=== PATIENT | female | born 1950 | race Caucasian/White ===

== ENCOUNTER → 2017-07-11 | Outpatient (CLI) | payer MEDICARE ==
[~2017-07-11] MED LIST: SODIUM CHLORIDE 0.9% 500 ML in EMPTY BAG 1 BAG IV PRN
[2017-07-11 14:25] VITALS: BP 128/73; PULSE 56; RESP 16; TEMP 98.2
== END | disposition home or self-care (01) ==
LOC: PROCWHC3 13:42
PROVIDERS: ATTEND Psychiatry & Neurology Neurology
DX: G35 Multiple sclerosis (principal)
CPT/HCPCS: 96365

== ENCOUNTER → 2017-09-16 | Outpatient (CLI) | payer MEDICARE ==
--- NOTE | 2017-09-16 16:48 | MR ---
EXAMINATION TYPE: MR brain/cspine wo/w DATE OF EXAM: 09/16/2017 COMPARISON: Prior MR brain 01/08/2013 and prior thoracic spine MRI 07/08/2013 HISTORY: MS follow up TECHNIQUE: Multiplanar, multisequence images of the brain and brainstem is performed without and with IV contras t, utilizing 8 mL intravenous Gadavist . FINDINGS: Diffusion weighted images demonstrate no evidence of a recent infarct or other diffusion ab normality. There is no extra-axial fluid collection. The demyelination is seen shows a similar appea dana, confluent periventricular demyelination somewhat more conspicuous at the left frontal region a s well as at the level of the posterior horn of the right lateral ventricle juxtacortical focus in th e right frontal lobe on axial image 23 measures approximately 3 to 4 mm and is thought to be new. The ventricular system and cisternal spaces are normal in size and appearance. The brain volume is age appropriate. Midline structures demonstrate normal morphology. The craniocervical junction appears within normal limits. Post contrast images demonstrate no abnormal enhancement. The dural venous sinuses appear pa tent. The visualized sinuses are clear and the globes are intact. IMPRESSION: Slight interval progression in the demyelination as described. Cervical spine MRI: The abnormal cord signal at the T2 level is seen on sagittal images but not cover ed on the axial image. Suspect there is increased signal also present at approximately the T3-4 level within the thoracic cord similar to prior exam. Cervical cord signal is maintained. No abnormal enha ncement following contrast administration. Cervical vertebral bodies show preserved height. Minimal retrolisthesis grade 1 C5-6, there is associ ated loss of disc height, endplate discogenic marrow signal change, spondylosis. Left posterior parac entral disc herniation, extension endplate disc complex causes anterolateral mass effect on the theca l sac and encroaches towards the left neural foramen. C4-5 show posterior extension of endplate disc complex causing mild anterior mass effect on the theca l sac. C6-7 shows lateral extension of endplate disc complex causing left-sided foraminal encroachmen t. Small posterior central disc extrusion at C3-4. No other significant foraminal encroachment or canal stenosis. IMPRESSION: There may be a new focus of cord signal abnormality at T2. Degenerative disc disease note d within the cervical spine, foraminal encroachment as described.
== END | disposition home or self-care (01) ==
LOC: RADMRIMAIN 14:43
PROVIDERS: ATTEND Psychiatry & Neurology Neurology
DX: G37.9 Demyelinating disease of central nervous system, unspecified (principal); M50.30 Other cervical disc degeneration, unspecified cervical region
CPT/HCPCS: 70553; 72156; A9581

== ENCOUNTER → 2017-09-18 | Outpatient (CLI) | payer MEDICARE ==
--- NOTE | 2017-09-18 18:26 | MR ---
EXAMINATION TYPE: MR thoracic spine wo/w con DATE OF EXAM: 09/18/2017 COMPARISON: NONE HISTORY: Back pain, weakness, MS CONTRAST: Standard multiplanar, multisequence MRI departmental protocol with and without the intravenous admini stration of 7.5 mL intravenous Gadavist gadolinium contrast. FINDINGS: Paraspinal soft tissues are normal. Vertebral body height and alignment are maintained. Cord signal is maintained. No definite plaques are visualized. There is a tiny central disc protrusion at T4-5 deforming the thecal sac without cord contact. There is a diffuse disc displacement at T5-6 and there is a left paracentral protrusion at T5-6 defor gabriela the thecal sac without cord contact. There is a left paracentral disc protrusion at T8-9 deforming the thecal sac without cord contact. No other definite discal abnormalities are seen. Intervertebral foramina are widely maintained. IMPRESSION: 1. NO EVIDENCE OF MS PLAQUES ON THIS EXAMINATION. 2. MULTIPLE SMALL DISC PROTRUSIONS DESCRIBED. NONE OF THEM CAUSING CORD CONTACT.
== END | disposition home or self-care (01) ==
LOC: RADMRIMAIN 16:34
PROVIDERS: ATTEND Psychiatry & Neurology Neurology
DX: M51.24 Other intervertebral disc displacement, thoracic region (principal); G35 Multiple sclerosis
CPT/HCPCS: 72157; A9581

== ENCOUNTER → 2017-12-26 | Outpatient (CLI) | payer MEDICARE ==
--- NOTE | 2017-12-29 13:23 | MM ---
Reason for exam: screening (asymptomatic). Last mammogram was performed 3 years and 8 months ago. History: Patient is postmenopausal and has history of other cancer at age 56. Physical Findings: A clinical breast exam by your physician is recommended on an annual basis and results should be correlated with mammographic findings. MG Screening Mammo w CAD Bilateral CC and MLO view(s) were taken. Prior study comparison: August 13, 2016, mammogram. July 13, 2015, mammogram. April 29, 2014, bilateral MG screening mammo w CAD. April 27, 2013, bilateral digital screening mammo w/CAD. There are scattered fibroglandular densities. Finding: There is a new high density, obscured round mass in the inner quadrant, middle position of the right breast on CC view. New finding since April 27, 2013, August 13, 2016, July 13, 2015, and April 29, 2014. ASSESSMENT: Incomplete: need additional imaging evaluation, BI-RAD 0 RECOMMENDATION: Special view mammogram of the right breast. If lesion persists on supplemental views, image directed ultrasound is recommended. [facility] will attempt to contact patient to return for supplemental views and ultrasound if indicated.
== END | disposition home or self-care (01) ==
LOC: RADMAMWWP 13:13
PROVIDERS: ATTEND Family Medicine
DX: Z12.31 Encounter for screening mammogram for malignant neoplasm of breast (principal)
CPT/HCPCS: 77067

== ENCOUNTER → 2018-01-02 | Outpatient (CLI) | payer MEDICARE ==
--- NOTE | 2018-01-02 13:40 | MM ---
Reason for exam: additional evaluation requested from abnormal screening. Last mammogram was performed less than 1 month ago. History: Patient is postmenopausal and has history of other cancer at age 56. Physical Findings: Nurse did not find any significant physical abnormalities on exam. MG Work Up Mamm w CAD RT Spot compression CC and LM view(s) were taken of the right breast. Prior study comparison: December 26, 2017, bilateral MG screening mammo w CAD. August 13, 2016, mammogram. The breast tissue is heterogeneously dense. This may lower the sensitivity of mammography. There is no discrete abnormality on compression. These results were verbally communicated with the patient and result sheet given to the patient on 01/02/18. ASSESSMENT: Probably benign, BI-RAD 3 RECOMMENDATION: Follow-up diagnostic mammogram of the right breast in 6 months.
== END | disposition home or self-care (01) ==
LOC: RADMAMWWP 12:57
PROVIDERS: ATTEND Family Medicine
DX: R92.8 Other abnormal and inconclusive findings on diagnostic imaging of breast (principal)
CPT/HCPCS: 77065

== ENCOUNTER 2018-01-29 15:46 | Emergency (ER) | payer MEDICARE ==
[2018-01-29] MEDS ORDERED: DEXAMETHASONE SOD PHOSPHATE 10 MG/ML 1 ML VIAL IM STA (16:56)
[2018-01-29] MEDS ORDERED: MORPHINE SULFATE/PF 10MG/10ML VL IM STA (16:56)
[2018-01-29] MEDS ORDERED: HYDROcodone/APAP 10-325MG 1 EACH TAB PO ONE (16:59)
--- NOTE | 2018-01-29 18:34 | ED ---
General Adult HPI - General Chief complaint: Extremity Problem,Nontraumatic Stated complaint: lt leg pain Time Seen by Provider: 01/29/18 16:24 Source: patient, RN notes reviewed, old records reviewed Mode of arrival: ambulatory Limitations: no limitations - History of Present Illness Initial comments: This is a 67-year-old female to the ER for evaluation. She presents today for evaluation regards to back pain, back pain down left leg. Patient has history of MS. No history of injury. No loss of bowel or bladder. No neurological complaints no weakness and decreased sensation just pain. Patient is taking pain controllable out. Patient does have follow-up with neurology next week. Travel history no significant history for DVT - Related Data Home Medications Medication Instructions Recorded Confirmed Glatiramer Acetate [Copaxone] 40 mg SQ MOWEFR 05/24/14 01/29/18 Cholecalciferol [Vitamin D3] 50,000 unit PO WE 04/28/15 01/29/18 Vitamin B Complex 1 tab PO QAM 04/29/15 01/29/18 Multivitamin/Iron/Folic Acid 1 tab PO DAILY 05/04/15 01/29/18 [Centrum Complete Multivit Tab] Calcium Carbonate [Calcium] 900 mg PO DAILY 06/06/15 01/29/18 Flaxseed [Flaxseed Oil] 1,000 mg PO DAILY 06/06/15 01/29/18 Garlic 1 tab PO DAILY 06/06/15 01/29/18 Glucosam/Juan-Msm1/C/Ronnie/Bosw 1 tab PO DAILY 06/06/15 01/29/18 [Glucosamine-Chondroitin Tablet] Pantoprazole Sodium [Protonix] 40 mg PO BID 06/06/15 01/29/18 Baclofen 20 mg PO HS 07/05/16 01/29/18 HYDROcodone/APAP 5-325MG [Capulin 1 tab PO TID 01/29/18 01/29/18 5-325] Levothyroxine Sodium [Synthroid] 62.5 mcg PO LYON 01/29/18 01/29/18 Levothyroxine Sodium [Synthroid] 125 mcg PO MOTUWETHFRSA 01/29/18 01/29/18 Nadolol [Corgard] 20 mg PO BID 01/29/18 01/29/18 Previous Rx's Medication Instructions Recorded Ascorbic Acid [Vitamin C] 500 mg PO DAILY tab 07/10/15 Aspirin EC [Ecotrin Low Dose] 81 mg PO HS tablet. 05/12/15 Atorvastatin [Lipitor] 20 mg PO HS tab 05/12/15 Isosorbide Mononitrate ER [Imdur] 30 mg PO DAILY tab.er.24h 05/12/15 OXcarbazepine [Trileptal] 150 mg PO BID tab 05/12/15 Sucralfate [Carafate] 1 gm PO QID tab 05/12/15 Allergies Allergy/AdvReac Type Severity Reaction Status Date / Time aspirin AdvReac Nausea Verified 01/29/18 16:20 cefuroxime axetil AdvReac Diarrhea Verified 01/29/18 16:20 [From Ceftin] ciprofloxacin [From Cipro] AdvReac Dizziness Verified 01/29/18 16:20 ciprofloxacin HCl AdvReac Dizziness Verified 01/29/18 16:20 [From Cipro] simvastatin AdvReac Myalgias, Verified 01/29/18 16:20 Fatigue tramadol HCl [From Ultram] AdvReac Nausea & Verified 01/29/18 16:20 Vomiting & Diarrhea Review of Systems ROS Statement: Those systems with pertinent positive or pertinent negative responses have been documented in the HPI. ROS Other: All systems not noted in ROS Statement are negative. Past Medical History Past Medical History: Chest Pain / Angina, GERD/Reflux, Hyperlipidemia, Hypertension, Osteoarthritis (OA), Thyroid Disorder Additional Past Medical History / Comment(s): MIGRAINE HEADACHE, THYROID CANCER , Multiple Sclerosis History of Any Multi-Drug Resistant Organisms: C-DIFF Date of last positivie culture/infection: 05-01-15 MDRO Source:: Stool Past Surgical History: Heart Catheterization, Tonsillectomy, Tubal Ligation Additional Past Surgical History / Comment(s): thyroidectomy, EGD's , colonoscopY R knee arthroscopy, Past Anesthesia/Blood Transfusion Reactions: No Reported Reaction Past Psychological History: No Psychological Hx Reported Smoking Status: Never smoker Past Alcohol Use History: None Reported Past Drug Use History: None Reported - Past Family History Brother(s) Family Medical History: Cancer Additional Family Medical History / Comment(s): KIDNEY CANCER Father History Unknown: Yes Additional Family Medical History / Comment(s): Father when pt was 17 yrs old. Denies a family history of others with MS. Mother Family Medical History: No Reported History Additional Family Medical History / Comment(s): Mother was healthy and at age 89yrs. General Exam Limitations: no limitations General appearance: alert, in no apparent distress Head exam: Present: atraumatic, normocephalic, normal inspection Eye exam: Present: normal appearance, PERRL, EOMI. Absent: scleral icterus, conjunctival injection, periorbital swelling ENT exam: Present: normal exam, mucous membranes moist Neck exam: Present: normal inspection. Absent: tenderness, meningismus, lymphadenopathy Respiratory exam: Present: normal lung sounds bilaterally. Absent: respiratory distress, wheezes, rales, rhonchi, stridor Cardiovascular Exam: Present: regular rate, normal rhythm, normal heart sounds. Absent: systolic murmur, diastolic murmur, rubs, gallop, clicks GI/Abdominal exam: Present: soft, normal bowel sounds. Absent: distended, tenderness, guarding, rebound, rigid Extremities exam: Present: normal inspection, full ROM, normal capillary refill. Absent: tenderness, pedal edema, joint swelling, calf tenderness Back exam: Present: normal inspection Neurological exam: Present: alert, oriented X3, CN II-XII intact Psychiatric exam: Present: normal affect, normal mood Skin exam: Present: warm, dry, intact, normal color. Absent: rash Course Vital Signs 01/29/18 01/29/18 15:48 17:31 Temperature 97.9 F 97.8 F Pulse Rate 64 58 L Respiratory 18 16 Rate Blood Pressure 134/58 125/78 O2 Sat by Pulse 97 98 Oximetry - Reevaluation(s) Reevaluation #1: 01/29/18 18:32 Patient has been adequate pain control at this time Medical Decision Making - Medical Decision Making 67 female the ER for evaluation of left leg pain left hip pain. Pain back. No traumatic injury is noted. Patient can be discharged home with increased pain control to follow-up with nephrology Disposition Clinical Impression: Back pain, Left leg pain Disposition: HOME SELF-CARE Condition: Good Instructions: Leg Pain (ED), Lumbar Radiculopathy (ED), Sciatica (ED) Referrals: Loco Sánchez DO [Primary Care Provider] - 1-2 days
--- NOTE | 2018-01-29 18:49 | CT ---
EXAMINATION TYPE: CT abdomen pelvis wo con DATE OF EXAM: 01/29/2018 COMPARISON: 06/06/2015 HISTORY: LEFT HIP PAIN CT DLP: 932 mGycm Automated exposure control for dose reduction was used. TECHNIQUE: Helical acquisition of images was performed from the lung bases through the pelvis. FINDINGS: The lung bases are clear. There is no pleural effusion. There is no pericardial effusion. Liver spleen pancreas gallbladder appear normal. Bile ducts are not dilated. There is no adrenal mass . Kidneys have normal size and contour. There is no hydronephrosis. There is no retroperitoneal adeno emil. There is no ascites. Appendix appears normal. I see no intestinal wall thickening. There are n o dilated loops. Bladder distends smoothly. I see no pelvic mass. There is no free fluid in the pelvi s. I see no pelvic mass. There is a degenerative first-degree L3-4 spondylolisthesis. There is small posterior disc herniation at L4-5. There is some spinal stenosis at L3-4 due to facet arthropathy and subluxation deformity. There is no evidence of a hernia. There is isolated diverticulum of the ascen ding colon. IMPRESSION: NO RENAL STONE OR OBSTRUCTION. THERE IS CLEARING OF THE LARGE BOWEL INFLAMMATORY CHANGES AND THE RIGH T-SIDED HYDRONEPHROSIS COMPARED TO OLD EXAM. THERE IS CLEARING OF THE GALLBLADDER DILATION COMPARED T O OLD EXAM. THERE IS SPINAL STENOSIS AT L3-4 WITH A CONTRIBUTING DEGENERATIVE FIRST-DEGREE L3-4 SPONDYLOLISTHESIS . THIS APPEARS SIMILAR TO OLD EXAM.
--- NOTE | 2018-01-29 18:59 | CT ---
EXAMINATION TYPE: CT hip LT wo con DATE OF EXAM: 01/29/2018 COMPARISON: NONE HISTORY: LEFT HIP PAIN CT DLP: 932 mGycm Automated exposure control for dose reduction was used. FINDINGS: The proximal left femur is intact. There is mild acetabular spurring. The left acetabulum is intact. Pubic rami appear intact. The left sacroiliac joint appears normal. I see no focal bone destruction. There is no evidence of soft tissue mass. IMPRESSION: MINOR OSTEOARTHRITIC CHANGES. NO HIP FRACTURE SEEN.
[2018-01-29] MEDS ORDERED: oxyCODONE-APAP 5-325MG 1 EACH TAB PO STA (19:31)
[2018-01-29 19:54] VITALS: BP 135/82; PULSE 63; RESP 18; TEMP 98.2
== END 2018-01-29 19:55 | disposition home or self-care (01) ==
LOC: EC 15:46
DX: M25.552 Pain in left hip (principal); M54.9 Dorsalgia, unspecified; K21.9 Gastro-esophageal reflux disease without esophagitis; E78.5 Hyperlipidemia, unspecified; I10 Essential (primary) hypertension; E07.9 Disorder of thyroid, unspecified; M19.90 Unspecified osteoarthritis, unspecified site; Z86.69 Personal history of other diseases of the nervous system and sense organs; Z95.5 Presence of coronary angioplasty implant and graft; Z88.1 Allergy status to other antibiotic agents; Z88.5 Allergy status to narcotic agent; Z88.6 Allergy status to analgesic agent; Z88.8 Allergy status to other drugs, medicaments and biological substances; Z79.899 Other long term (current) drug therapy
CPT/HCPCS: 74176; 96372; 99284

== ENCOUNTER → 2018-02-24 | Outpatient (CLI) | payer MEDICARE ==
--- NOTE | 2018-02-24 09:21 | MR ---
EXAMINATION TYPE: MR lumbar spine wo con DATE OF EXAM: 02/24/2018 COMPARISON: NONE HISTORY: MS, Lumbar Radiculopathy Left side TECHNIQUE: T1 and T2 axial and sagittal images of the lumbar spine are submitted. FINDINGS: There is no abnormal signal seen within the visualized spinal cord or paraspinal soft tissu es. At L1-2 there is no disc herniation or canal stenosis. No foraminal encroachment. At L2-3 there is facet arthropathy and ligamentum flavum hypertrophy. Circumferential disc bulging wi th mild bilateral foraminal encroachment. Borderline central stenosis. At L3-4 there is severe degenerative disc disease with grade 1 anterolisthesis. There is severe facet arthropathy and ligamentum flavum hypertrophy with mild central stenosis and mild to moderate bilate ral foraminal encroachment. At L4-5 there is degenerative disc disease with advanced facet arthropathy and ligamentum flavum hype rtrophy. Broad-based central disc bulging results in mild central stenosis and mild bilateral foramin al encroachment greater on the right. At L5-S1 there is degenerative disc disease and facet arthropathy. No foraminal encroachment. No Pella l stenosis. IMPRESSION: 1. Multilevel degenerative disc disease and facet arthropathy with grade 1 anterolisthesis L3 on L4. 2. Multilevel foraminal encroachment and borderline to mild central stenosis.
== END | disposition home or self-care (01) ==
LOC: RADMRIMAIN 08:24
PROVIDERS: ATTEND Psychiatry & Neurology Neurology
DX: M48.061 Spinal stenosis, lumbar region without neurogenic claudication (principal); M51.16 Intervertebral disc disorders with radiculopathy, lumbar region; M43.16 Spondylolisthesis, lumbar region; M46.96 Unspecified inflammatory spondylopathy, lumbar region; G35 Multiple sclerosis
CPT/HCPCS: 72148

== ENCOUNTER → 2018-07-07 | Outpatient (CLI) | payer MEDICARE ==
--- NOTE | 2018-07-07 14:12 | MM ---
Reason for exam: follow-up at short interval from prior study. Last mammogram was performed 6 months ago. History: Patient is postmenopausal and has history of other cancer at age 56. Physical Findings: Nurse did not find any significant physical abnormalities on exam. MG Diagnostic Mammo RT w CAD CC and MLO view(s) were taken of the right breast. Prior study comparison: January 02, 2018, right breast MG work up mamm w CAD RT. December 26, 2017, bilateral MG screening mammo w CAD. There are scattered fibroglandular densities. There is no discrete abnormality. No significant new findings when compared with previous films. These results were verbally communicated with the patient and result sheet given to the patient on 07/07/18. ASSESSMENT: Benign, BI-RAD 2 RECOMMENDATION: Return to routine screening mammogram schedule for both breasts. Back on schedule.
== END | disposition home or self-care (01) ==
LOC: RADMAMWWP 12:49
PROVIDERS: ATTEND Family Medicine
DX: R92.8 Other abnormal and inconclusive findings on diagnostic imaging of breast (principal)
CPT/HCPCS: 77065

== ENCOUNTER → 2019-02-03 | Outpatient (CLI) | payer MEDICARE ==
--- NOTE | 2019-02-04 12:09 | MM ---
Reason for exam: screening (asymptomatic). Last mammogram was performed 7 months ago. History: Patient is postmenopausal and has history of other cancer at age 56. Physical Findings: A clinical breast exam by your physician is recommended on an annual basis and results should be correlated with mammographic findings. MG Screening Mammo w CAD Bilateral CC and MLO view(s) were taken. Prior study comparison: July 07, 2018, right breast MG diagnostic mammo RT w CAD. January 02, 2018, right breast MG work up mamm w CAD RT. The breast tissue is heterogeneously dense. This may lower the sensitivity of mammography. There is no discrete abnormality. ASSESSMENT: Negative, BI-RAD 1 RECOMMENDATION: Routine screening mammogram of both breasts in 1 year.
== END | disposition home or self-care (01) ==
LOC: RADMAMWWP 14:18
PROVIDERS: ATTEND Family Medicine
DX: Z12.31 Encounter for screening mammogram for malignant neoplasm of breast (principal)
CPT/HCPCS: 77067

== ENCOUNTER 2021-05-22 07:30 | Emergency (ER) | payer MEDICARE ==
[2021-05-22 07:36] VITALS: BP 165/91; PULSE 58; RESP 18; TEMP 98.3
[2021-05-22] MEDS ORDERED: ONDANSETRON ODT 4 MG TAB PO STA (08:03)
--- NOTE | 2021-05-22 08:10 | ED ---
Lower Extremity Injury HPI - General Chief Complaint: Extremity Injury, Lower Stated Complaint: hip & leg pain Time Seen by Provider: 05/22/21 07:47 Source: patient Mode of arrival: wheelchair Limitations: physical limitation - History of Present Illness Initial Comments: Patient is a 71-year-old female presenting to the emergency Department with complaints of right hip pain over the past week. She states she had a slip and fall about one month ago, she was chasing her cat and slipped into her washer and dryer. She states she has not had any pain in the area until one week ago. States she woke up and noticed it was sore. She did go to her PCPs office and had right hip x-rays 4 days ago, they were negative for any acute fractures or dislocations. She was placed on steroids, she still has 3 days left. She states she thought the steroids weren't working at first but now she is having trouble sleeping because of the achiness. She already takes Jackson for chronic arthritis. Tablet this morning. She denies any additional falls or trauma. She denies any right hip surgeries, she does have a previous right knee scope. She denies any fevers or chills. She has no further complaints at this time. - Related Data Home Medications Medication Instructions Recorded Confirmed Glatiramer Acetate [Copaxone] 40 mg SQ MOWEFR 05/24/14 08/26/18 Cholecalciferol [Vitamin D3 (25 50,000 unit PO WE 04/28/15 08/26/18 Mcg = 1000 Iu)] Vitamin B Complex 1 tab PO QAM 04/29/15 08/26/18 Multivitamin/Iron/Folic Acid 1 tab PO DAILY 05/04/15 08/26/18 [Centrum Complete Multivit Tab] Calcium Carbonate [Calcium] 900 mg PO DAILY 06/06/15 08/26/18 Flaxseed [Flaxseed Oil] 1,000 mg PO DAILY 06/06/15 08/26/18 Garlic 1 tab PO DAILY 06/06/15 08/26/18 Glucosam/Juan-Msm1/C/Ronnie/Bosw 1 tab PO DAILY 06/06/15 08/26/18 [Glucosamine-Chondroitin Tablet] Pantoprazole Sodium [Protonix] 40 mg PO BID 06/06/15 08/26/18 Baclofen 20 mg PO HS 07/05/16 08/26/18 HYDROcodone/APAP 5-325MG [Jackson 1 tab PO TID 01/29/18 08/26/18 5-325] Levothyroxine Sodium [Synthroid] 62.5 mcg PO LYON 01/29/18 08/26/18 Levothyroxine Sodium [Synthroid] 125 mcg PO [id number] 01/29/18 08/26/18 nadoloL [Corgard] 20 mg PO BID 01/29/18 08/26/18 Previous Rx's Medication Instructions Recorded Ascorbic Acid [Vitamin C] 500 mg PO DAILY tab 05/12/15 Aspirin EC [Ecotrin Low Dose] 81 mg PO HS tablet. 05/12/15 Atorvastatin [Lipitor] 20 mg PO HS tab 05/12/15 Isosorbide Mononitrate ER [Imdur] 30 mg PO DAILY tab.er.24h 05/12/15 OXcarbazepine [Trileptal] 150 mg PO BID tab 05/12/15 Sucralfate [Carafate] 1 gm PO QID tab 05/12/15 HYDROcodone/APAP 10-325MG [Jackson 1 tab PO Q6H PRN #20 tab 01/29/18 10-325] oxyCODONE-APAP 5-325MG [Percocet 1 tab PO Q6HR PRN #14 tab 01/29/18 5-325 mg] HYDROcodone/APAP 7.5-325MG [Jackson 1 tab PO Q6HR PRN #9 tab 05/22/21 7.5-325] Allergies Allergy/AdvReac Type Severity Reaction Status Date / Time aspirin AdvReac Nausea Verified 05/22/21 07:36 cefuroxime axetil AdvReac Diarrhea Verified 05/22/21 07:36 [From Ceftin] ciprofloxacin [From Cipro] AdvReac Dizziness Verified 05/22/21 07:36 ciprofloxacin HCl AdvReac Dizziness Verified 05/22/21 07:36 [From Cipro] simvastatin AdvReac Myalgias, Verified 05/22/21 07:36 Fatigue tramadol HCl [From Ultram] AdvReac Nausea & Verified 05/22/21 07:36 Vomiting & Diarrhea Review of Systems ROS Statement: Those systems with pertinent positive or pertinent negative responses have been documented in the HPI. ROS Other: All systems not noted in ROS Statement are negative. Past Medical History Past Medical History: Chest Pain / Angina, GERD/Reflux, Hyperlipidemia, Hypertension, Osteoarthritis (OA), Thyroid Disorder Additional Past Medical History / Comment(s): MIGRAINE HEADACHE, THYROID CANCER, Multiple Sclerosis History of Any Multi-Drug Resistant Organisms: ESBL Date of last positivie culture/infection: 10/19/18 MDRO Source:: ESBL URINE Past Surgical History: Heart Catheterization, Tonsillectomy, Tubal Ligation Additional Past Surgical History / Comment(s): thyroidectomy, EGD's , colonoscopY R knee arthroscopy, Past Anesthesia/Blood Transfusion Reactions: No Reported Reaction Past Psychological History: No Psychological Hx Reported Smoking Status: Never smoker Past Alcohol Use History: None Reported Past Drug Use History: None Reported - Past Family History Brother(s) Family Medical History: Cancer Additional Family Medical History / Comment(s): KIDNEY CANCER Father History Unknown: Yes Additional Family Medical History / Comment(s): Father when pt was 17 yrs old. Denies a family history of others with MS. Mother Family Medical History: No Reported History Additional Family Medical History / Comment(s): Mother was healthy and at age 89yrs. General Exam - General Exam Comments Initial Comments: GENERAL: Patient is well-developed and well-nourished. Patient is nontoxic and in no acute distress. HEAD: Atraumatic, normocephalic. EYES: Pupils equal round and reactive to light, extraocular movements intact, sclera anicteric, conjunctiva are normal. Eyelids were unremarkable. NECK: Normal range of motion, supple without lymphadenopathy or JVD. LUNGS: Unlabored respirations. Breath sounds clear to auscultation bilaterally and equal. No wheezes rales or rhonchi. HEART: Regular rate and rhythm without murmurs, rubs or gallops. ABDOMEN: Soft, nontender, normoactive bowel sounds. No guarding, no rebound. No masses appreciated. MUSCULOSKELETAL: Patient has no pain with palpation of the right lateral or posterior hip, she has full range of motion of the right hip, neurovascular intact. There is no swelling, no obvious deformity. No clubbing or cyanosis. NEUROLOGICAL: Patient is alert and oriented x 3. SKIN: Warm, Dry, normal turgor, no rashes or lesions noted. Limitations: physical limitation Course Vital Signs 05/22/21 07:33 Temperature 98.3 F Pulse Rate 58 L Respiratory 18 Rate Blood Pressure 165/91 O2 Sat by Pulse 98 Oximetry Medical Decision Making - Medical Decision Making Patient is a 71-year-old female presenting with right hip pain increasing over the past week. She had a slip and fall 1 month ago, no pain until one week ago. She did have x-rays 4 days ago, no acute fractures dislocations. She is currently on steroids and already takes Jackson 5. She has seen Dr. Gleason in the past for her right knee. She does have full range of motion. I discussed with patient is most likely a flareup of her arthritis or a strain. I did recommend continuing with her steroids. I will give her a prescription for a stronger Jackson for a few days until she can see the orthopedic. She is in agreement with this plan of care. She is stable for discharge. Case discussed with Dr. Aguilar. Disposition Clinical Impression: Right hip pain Disposition: HOME SELF-CARE Condition: Stable Instructions (If sedation given, give patient instructions): Hip Pain (ED) Additional Instructions: Please return to the Emergency Department if symptoms worsen or any other concerns. Please follow up with orthopedics as discussed. Prescriptions: HYDROcodone/APAP 7.5-325MG [Jackson 7.5-325] 1 tab PO Q6HR PRN #9 tab PRN Reason: Pain Is patient prescribed a controlled substance at d/c from ED?: Yes When asked, does pt state using other controlled substances?: Yes If prescribed controlled substance>3 days was MAPS reviewed?: Prescribed <3 Days If opioid is for acute pain is fill amount 7 days or less?: Yes If Rx opioid, was Start Talking consent form obtained?: Yes Referrals: Loco Sánchez DO [Primary Care Provider] - 1-2 days Martin Stone DO [Doctor of Osteopathic Medicine] - 1-2 days Time of Disposition: 08:10
== END 2021-05-22 08:20 | disposition home or self-care (01) ==
LOC: EC 07:30
DX: M25.551 Pain in right hip (principal); I10 Essential (primary) hypertension; E78.5 Hyperlipidemia, unspecified; K21.9 Gastro-esophageal reflux disease without esophagitis; G35 Multiple sclerosis; M19.90 Unspecified osteoarthritis, unspecified site; Z85.850 Personal history of malignant neoplasm of thyroid; Z79.82 Long term (current) use of aspirin; Z88.1 Allergy status to other antibiotic agents; Z88.6 Allergy status to analgesic agent
CPT/HCPCS: 99283

== ENCOUNTER → 2023-07-14 | Outpatient (CLI) | payer MEDICARE ==
[~2023-07-14] MED LIST changes: +SODIUM CHLORIDE 0.9% 500 ML 500 ML in EMPTY BAG 1 BAG IV PRN; -SODIUM CHLORIDE 0.9% 500 ML in EMPTY BAG 1 BAG IV PRN; +ZOLEDRONIC ACID 5 MG in SODIUM CHLORIDE 0.9% 100 ML IV NR
[2023-07-14 13:04] VITALS: BP 113/67; PULSE 65; RESP 16; TEMP 97.6
== END ==
LOC: PROCWHC3 12:49
PROVIDERS: ATTEND Internal Medicine
DX: M81.0 Age-related osteoporosis without current pathological fracture (principal)
CPT/HCPCS: 96365; J3489

== ENCOUNTER → 2024-02-09 | Outpatient (CLI) | payer MEDICARE ==
[2024-02-09] MEDS: SODIUM CHLORIDE 0.9% 500 ML 500 ML in EMPTY BAG 1 BAG IV PRN (10:19)
[2024-02-09] MEDS: methylPREDNISolone SOD SUCCIN 1,000 MG in SODIUM CHLORIDE 0.9% 250 ML IVPB NR (10:20)
[2024-02-09 10:54] VITALS: BP 100/64; PULSE 56; RESP 16; TEMP 97.6
== END ==
LOC: PROCWHC3 09:56
PROVIDERS: ATTEND Psychiatry & Neurology Neurology
DX: G35 Multiple sclerosis (principal)
CPT/HCPCS: 96365; J2930

== ENCOUNTER 2024-07-14 08:22 | Day surgery (SDC) | payer MEDICARE ==
[2024-07-12 09:45] VITALS: BMI 32.1
[~2024-07-14 08:22] MED LIST changes: +LIDOCAINE 1% (10MG/ML) FOR IV START INTRADERMA PRN; -SODIUM CHLORIDE 0.9% 500 ML 500 ML in EMPTY BAG 1 BAG IV PRN; -ZOLEDRONIC ACID 5 MG in SODIUM CHLORIDE 0.9% 100 ML IV NR
[2024-07-14] MEDS: IV FLUID CONTINUATION 1,000 ML IV ONE (08:47)
[2024-07-14] MEDS: LACTATED RINGERS 1,000 ML IV SCH (09:01)
[2024-07-14 09:05] VITALS: TEMP 96.9
[2024-07-14] MEDS ORDERED: PROPOFOL 10 MG/ML 20 ML VIAL IV ONE (09:15)
--- NOTE | 2024-07-14 09:35 | P.PCN ---
Date of Procedure: 07/14/24 Procedure(s) Performed: BRIEF HISTORY: Patient is a 74-year-old pleasant white female scheduled for an elective colonoscopy as a part of evaluation of Hemoccult positive stool. PROCEDURE PERFORMED: Colonoscopy. PREOPERATIVE DIAGNOSIS: Hemoccult positive stool. IV sedation per Anesthesia. PROCEDURE: After informed consent was obtained, the patient, was brought into the endoscopy unit. IV sedation was administered by Anesthesia under continuous monitoring. Digital rectal examination was normal. Initially the Olympus CF-160 flexible video colonoscope was then inserted in the rectum, gradually advanced into the cecum without any difficulty. Careful examination was performed as the scope was gradually being withdrawn. Ileocecal valve and the appendiceal orifice were visualized and appeared normal. Prep was excellent. Mucosa of the cecum, ascending colon, transverse colon, descending colon, sigmoid colon, and rectum appeared normal. Retroflexion was performed in the rectum and mild erythema of the distal rectum noted suspicious for mild rectal prolapse. No hemorrhoids noted.. The patient tolerated the procedure well. IMPRESSION: Mild erythema in the distal rectum suggestive of rectal prolapse No evidence of colorectal neoplasia RECOMMENDATIONS: Findings of this examination were discussed with the patient as well as her family. She was advised to be on a high-fiber diet, take fiber supplements on a regular basis and avoid straining and constipation. Recommended repeat screening colonoscopy in 10 years..
[2024-07-14 09:41] VITALS: RESP 16
[2024-07-14 10:02] VITALS: BP 143/82; PULSE 68
== END 2024-07-14 10:29 | disposition home or self-care (01) ==
LOC: ORWHC2ENDO 08:22
PROVIDERS: ATTEND Internal Medicine Gastroenterology
DX: R19.5 Other fecal abnormalities
CPT/HCPCS: 45378

== ENCOUNTER → 2024-11-17 | Outpatient (CLI) | payer MEDICARE ==
[~2024-11-17] MED LIST changes: -LIDOCAINE 1% (10MG/ML) FOR IV START INTRADERMA PRN; +SODIUM CHLORIDE 0.9% 250 ML in EMPTY BAG 1 BAG IV PRN
[2024-11-17 13:56] VITALS: BP 144/72; PULSE 61; RESP 16; TEMP 97.4
[2024-11-17] MEDS: SODIUM CHLORIDE 0.9% 500 ML 500 ML in EMPTY BAG 1 BAG IV PRN (13:56)
[2024-11-17] MEDS: ZOLEDRONIC ACID 5 MG in SODIUM CHLORIDE 0.9% 100 ML IV NR (14:01)
== END ==
LOC: PROCWHC3 13:24
PROVIDERS: ATTEND Internal Medicine
DX: M81.0 Age-related osteoporosis without current pathological fracture (principal)
CPT/HCPCS: 96365; J3489